=== PATIENT | female | born 1960 | race Caucasian/White ===

== ENCOUNTER 2019-11-27 08:00 | Inpatient (IN) ==
[2019-11-29] MEDS ORDERED: TRANEXAMIC ACID 1,000 MG in NORMAL SALINE 100 ML IV PRN (06:00)
[2019-11-29] MEDS ORDERED: MORPHINE SULFATE 15 MG TABLET.SA PO PRN (06:00)
[2019-11-29] MEDS ORDERED: ceFAZolin SODIUM 1 GM VIAL IV PRN (06:00)
[2019-11-29] MEDS ORDERED: ROPIVACAINE HCL/PF 100 MG, EPINEPHrine 0.2 MG, KETOROLAC TROMETHAMINE 30 MG in NORMAL S... IJ PRN (06:00)
[2019-11-29] MEDS ORDERED: ceFAZolin SODIUM 1 GM VIAL ONE (06:25)
[2019-11-29] MEDS ORDERED: ISOPROPYL ALCOHOL 480 APPL BTL MC ONE (06:25)
[2019-11-29] MEDS ORDERED: SCOPOLAMINE HYDROBROMIDE 1.5 MG PATC TD ONE (07:11)
--- NOTE | 2019-11-29 07:15 | ANES ---
Anesthesia Pre Procedure Eval Vitals/Labs: Last Vital Signs Temp 36.5 C 11/29/19 06:40 Pulse 66 11/29/19 06:40 Resp 18 11/29/19 06:40 BP 130/71 11/29/19 06:40 Pulse Ox 97 11/29/19 06:40 HOME MEDICATIONS Cholecalciferol (Vitamin D3) [Vitamin D3] 2,000 unit PO DAILY 11/14/15 [Last Taken Unknown] [place]-3 Fatty Acids/Fish Oil [Fish Oil 1,000 mg Capsule] 1 ea PO DAILY 11/14/15 [Last Taken Unknown] Omeprazole Magnesium [Prilosec Otc] 20 mg PO DAILY 11/14/15 [Last Taken Unknown] albuterol sulfate 90 mcg/actuation aerosol inhaler 1 - 2 puff IH Q6H PRN #18 g 12/29/18 [Last Taken Unknown] thyroid (pork) 120 mg tablet See Rx Instructions .ROUTE .COMPLEX #90 unknown measurement unit code: tablet 08/21/19 [Last Taken Unknown] meloxicam 15 mg tablet 15 mg PO DAILY #30 tab 09/07/19 [Last Taken Unknown] glimepiride 4 mg tablet 4 mg PO BID #60 tab 10/17/19 [Last Taken Unknown] montelukast 10 mg tablet 10 mg PO QPM #90 tab 10/17/19 [Last Taken Unknown] fluticasone propionate 110 mcg/actuation HFA aerosol inhaler See Rx Instructions .ROUTE .COMPLEX #12 unknown measurement unit code: gram 11/14/19 [Last Taken Unknown] lisinopril 10 mg tablet See Rx Instructions .ROUTE .COMPLEX #90 unknown measurement unit code: tablet 11/14/19 [Last Taken Unknown] triamterene 37.5 mg-hydrochlorothiazide 25 mg tablet See Rx Instructions .ROUTE .COMPLEX #90 unknown measurement unit code: tablet 11/14/19 [Last Taken Unknown] multivitamin 1 tab PO DAILY 11/15/19 [Last Taken Unknown] Allergies/Adverse Reactions: Allergies Allergy/AdvReac Type Severity Reaction Status Date / Time duloxetine HCl AdvReac Mild vomiting, Verified 11/29/19 07:13 [From Cymbalta] dizziness metformin AdvReac Mild Diarrhea Verified 11/29/19 07:13 prochlorperazine edisylate AdvReac Mild Nausea Verified 11/29/19 07:13 [From Compazine] prochlorperazine maleate AdvReac Mild Nausea Verified 11/29/19 07:13 [From Compazine] - Planned Procedure Planned Procedure: Left Total Hip Arthroplasty Medication List Reviewed:: Yes Allergies Verified: Yes Medical History (Last Reviewed 11/29/19 @ 07:14 by Devon Lindsay CRNA) Osteoarthritis (Chronic) Onset Date: 05/08/16 Involving multiple joints. 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 Eaton Hx of Achilles tendon repair 12/2010 Left revised Hx of appendectomy 1987 Hx of colonoscopy 2009 WNL Hx of total knee arthroplasty 12/10/15 Left - Dr. Eaton Family History (Last Reviewed 11/29/19 @ 07:14 by Devon Lindsay CRNA) Father , Age 70 AAA? No problems noted. Mother , Age 79 Diabetes Asthma Postpolio syndrome Sister Asthma Hernia Daughter Obesity x2 daughters - Family Anesthesia History Family History:: no untoward family reactions to anesthesia, no familial bleeding tendencies, no family history of clotting disorders, no family history of premature - Airway/Neck/Teeth Within Normal Limits:: Yes Mallampatti Score: 2 Thyromental (T-M) distance: > 6 cm Mandibulo Hyoid distance: > 3 cm - Respiratory Respiratory Physical: lungs clear Discussed smoking cessation including day of surgery: No Sleep Apnea currently treated: Yes - Cardiovascular Tolerate Activity: Fair Heart Sounds: S1 & S2, Regular - Gastrointestinal NPO since: mn - Anesthesia Assessment and Plan ASA Class: PS, III Anesthesia Type Plan: Spinal
[2019-11-29] MEDS: RINGER'S SOLUTION,LACTATED 1,000 ML IV PRN ×3 (07:23→09:21)
[2019-11-29] MEDS ORDERED: LIDOCAINE HCL 20 ML VIAL ONE (07:31)
[2019-11-29] MEDS ORDERED: ONDANSETRON HCL/PF 2 MG/ML VIAL ONE (07:32)
[2019-11-29] MEDS ORDERED: fentaNYL CITRATE/PF 50 MCG/ML AMPUL ONE (07:32)
[2019-11-29] MEDS ORDERED: PROPOFOL VIAL IV ONE (07:33)
[2019-11-29] MEDS ORDERED: ZOLPIDEM TARTRATE 5 MG TABLET PO PRN (09:44)
[2019-11-29] MEDS ORDERED: MORPHINE SULFATE 2 MG/ML DISP.SYRIN IV PRN (09:44)
[2019-11-29] MEDS ORDERED: ACETAMINOPHEN 500 MG TABLET PO PRN (09:44)
[2019-11-29] MEDS ORDERED: diphenhydrAMINE HCL 50 MG/ML VIAL IV PRN (09:44)
[2019-11-29] MEDS ORDERED: MAG HYDROX/ALUMINUM HYD/SIMETH 30 ML UDC PO PRN (09:44)
[2019-11-29] MEDS ORDERED: MAGNESIUM HYDROXIDE 30 ML UDC PO PRN (09:44)
[2019-11-29] MEDS ORDERED: RINGER'S SOLUTION,LACTATED 1,000 ML IV PRN (09:44)
[2019-11-29] MEDS ORDERED: ONDANSETRON HCL/PF 2 MG/ML VIAL IV PRN (09:44)
[2019-11-29] MEDS ORDERED: ALBUTEROL SULFATE 2.5 MG/0.5 ML VIAL.NEB IH PRN (09:46)
--- NOTE | 2019-11-29 09:51 | OR ---
Operative Report - Dictated Report Narrative: Date: 11/29/2019 Preoperative diagnosis: Left hip degenerative joint disease. Postoperative diagnosis: Left hip degenerative joint disease. Procedure: Left total hip arthroplasty. Surgeon: Brett Eaton M.D. Photoengraver: Fortunato Wilkes PA-C (provided an essential set of skilled, educated and assisted with transfer, positioning, prepping, draping, manipulation, traction, irrigation, suturing, and placement of dressings all of which cannot be performed by the available surgical crew) Anesthesia: Spinal and local periarticular joint injection. Complications: None Specimens: Bone. Estimated blood loss: 150 milliliters. Retained implants: Depuy Gray size 2 femoral stem standard offset. Size 52 millimeter outside diameter 3-hole Mcarthur Gription acetabular cup. 52 millimeter outside by 32 millimeter inside diameter highly cross-linked acetabular liner. 32 millimeter diameter +9 millimeter ceramic femoral head. Cancellous 6.5mm screw 30 millimeter length Indications: Mrs. John is a 58-year-old female who has had longstanding left hip pain and arthrosis. This patient was followed in my clinic for period of time with significant complaints of left hip pain consistent with arthritic changes. She failed conservative measures including but not limited to activity modification, passage of time, medications, and other conservative measures. Patient wished to proceed with surgical treatment. The risks, benefits, and alternatives were discussed in clinic. The risks of , blood clots, bleeding, infection, nerve/tendon blood vessel/ injury, malposition of components, dislocation and/or instability of joint, intraoperative fracture, p ostoperative limited range of motion, persistent pain, failure of components, and need for additional procedures. Patient wished to proceed. Consent was obtained after answering all questions. Procedure: After marking the correct extremity on the floor, the patient was taken to the operating room. A timeout was performed. IV antibiotics consisting of Ancef were administered prior to the procedure. A spinal anesthetic was induced by anesthesia. A Leon catheter was inserted. The patient was then transitioned to a lateral position on a well-padded pegboard. An axillary roll was placed. The head was in neutral position. The non- operative down leg was well-padded with SCD and CECIL hose in place. The arms were supported and padded to protect from any undue pressure on the bony promin ences and nerves. A well-padded anterior and posterior pelvic and chest posts were secured in order to maintain a stable position of the pelvis. This was placed so that the pelvis was perpendicular to the floor. The body was in line with the pelvis. Once it was felt that we had protected all the bony prominences and the patient was well secured with a safety belt as well, the leg was pre-scrubbed with alcohol, prepped and draped in a standard sterile fashion. A standard anterior lateral hip incision was marked out over the greater trochanter. Ioban drapes were then placed. The skin incision was then made. Sharp dissection with a scalpel utilizing cautery for hemostasis was carried out down to the gluteus and iliotibial band fascia. This was split in line with the skin incision. The greater trochanter bursa was excised. The anterior and posterior margins of the abductor tendon were identified. The anterior 1/2-1/3 of the tendon was tagged and reflected off the greater trochanter leaving a sleeve of tendon for repair at the completion of the case. This exposed the underlying hip joint capsule. A limb length stitch was placed in the skin and referencedd off a ria on the greater trochanter for evaluation of intraoperative limb lengths. An inverted T-type capsulotomy was made extending this up to the brim of the acetabulum. Using Homans to assist with elevation of the soft tissues off the anterior, superior, and inferior aspects of the femoral neck, the hip was then placed in a figure 4 position and the femoral head was dislocated. With the leg in an externally rotated and adducted position, the cutting flag was utilized in order to ria for a standard femoral neck cut approximately a fingerbreadth above the level of the lesser trochanter. This was done with reference to pre-operative films and overall alignment. This was done while protecting the surrounding soft tissues with Homans. The femoral head was then removed and sized for guidance on preparation of the acetabulum. It was noted that there was loss of articular cartilage on both the femoral head and weightbearing portions of the acetabulum. We then returned the leg to the table and turned our attention to the acetabulum. While protecting the surrounding soft tissues, the labrum and remaining tissue in the fovea were excised using a scalpel and cautery. A series of reamers up to size 52 millimeter were utilized to prepare the acetabulum. The final reamer had good purchase and exposed the bleeding subchondral bone. The acetabulum was then thoroughly irrigated ensuring that all bony and cartilaginous materials were removed, and the final acetabular shell was impacted into place. This was placed in approximately 45 degrees of abduction and 20 degrees of anteversion utilizing the outrigger and body axis for alignment. This had a good press fit. 1 6.5mm cancellous screw was placed in the superior posterior quadrant of the acetabulum. The shell was then thoroughly irrigated and the final polyethylene was impacted into place ensuring that it seated completely. This was then protected with a sponge while we returned our attention to the femur. With the leg in a figure 4 position, utilizing Homans for soft tissue protection, a box cutting osteotome, followed by Charnley awl, followed by serial reamers and broaches were utilized in order to prepare the femur. It was found that a size 2 broach gave good axial and rotational stability. The calcar reamer was utilized in order to clean up the cut edges. The proximal femur was visualized to ensure that there were no signs of fracture. A series of heads and necks were trialed. It was found that a standard offset neck and a + 9 femoral head gave good overall stability. There was minimal longitudinal inst ability. With the leg in the position of sleep, the femoral head was well covered. Hip range of motion was able to reach full extension and external rotation to greater than 75 degrees prior to impingement along the posterior acetabulum. The hip was able to be flexed to greater than 90 degrees with internal rotation greater than 60 degrees prior to anterior impingement. The limb lengths were near equal based on comparison to the contralateral side and the prior placed limb length stitch. At this point it was felt these were the appropriately sized femoral components as well as neck and femoral head. The trial implants were removed. The femur was thoroughly irrigated. The final implants were impacted into place, and the hip was reduced. After ensuring that there was no damage to the proximal femur, the standard periarticular joint injection of ropivacaine, Toradol, and epinephrine were injected into the joint capsule and surrounding soft tissues. Anesthesia then administered intravenous tranexamic acid. The capsule was repaired with a single interrupted #1 Vicryl. The abductor tendon was repaired to the greater trochanter utilizing #5 Ethibond through drill holes. This was oversewn with #1 Vicryl. The fascia was closed with interrupted #1 Vicryl and #1 strata fix barbed suture. The wounds were thoroughly irrigated as we closed in layers. The deep and subcutaneous fat layers were closed with 0 and 3-0 Vicryl respectively. The subcutaneous tissue was closed with a running 3-0 Vicryl and the skin chari. All sponge, needle, blade, and instrument counts were correct prior to closing the wounds. Sterile dressings consisting of xeroform, 4 x 4's, and tape were applied. The patient was awoken and transferred to her hospital bed and then to the postanesthesia care unit in stable condition. Postoperative condition: The plan is to admit to the medical/surgical inpatient floor postoperatively. There will be a projected 1 to 3 day hospital stay. Postoperatively 24 hours of IV antibiotics, pain control, physical therapy, occupational therapy, and medical comanagement will be utilized. Patient will be weightbearing as tolerated with anterior hip precautions. Postoperative films will be obtained in the recovery room.
--- NOTE | 2019-11-29 10:04 | ANES ---
Post Anesthesia Discharge - Transfer of Care Transfer of Care handoff given to nurse: Yes - Discharge from PACU Discharge from PACU when meets criteria: Yes - Discharge to ASU Discharge to ASU-no complications/pt stable: Yes
[2019-11-29] MEDS: ceFAZolin SODIUM 1 GM in DEXTROSE 5 % IN WATER 100 ML IV SCH ×6 (10:48→22:35)
[2019-11-29] MEDS: KETOROLAC TROMETHAMINE 15 MG/ML VIAL IV SCH ×3 (10:49→22:32)
--- NOTE | 2019-11-29 10:54 | ANES ---
Post Anesthesia Assessment - Vital Signs Vitals: Last Vital Signs Temp 36 C 11/29/19 10:25 Pulse 67 11/29/19 10:25 Resp 14 11/29/19 10:25 BP 95/43 11/29/19 10:25 Pulse Ox 100 11/29/19 10:25 Airway Patency: Normal - Mental Status Level Of Consciousness: Awake - Pain Level Pain Score: 0 - N/V Assessment Nausea/Vomiting Presence: None Dehydration:: No
[2019-11-29] MEDS: oxyCODONE HCL/ACETAMINOPHEN 1 TAB TABLET PO PRN (13:10)
[2019-11-29] MEDS ORDERED: MONTELUKAST SODIUM 10 MG TABLET PO SCH (17:00)
[2019-11-29] MEDS: BUDESONIDE 0.5 MG/2 ML VIAL.NEB IH SCH (18:11)
[2019-11-29] MEDS ORDERED: SENNOSIDES/DOCUSATE SODIUM 1 TAB TABLET PO SCH (21:00)
[2019-11-29] MEDS: GLIMEPIRIDE 4 MG TABLET PO SCH (21:02)
[2019-11-29] MEDS: MORPHINE SULFATE 15 MG TABLET.SA PO SCH (21:03)
[2019-11-30] MEDS: ceFAZolin SODIUM 1 GM in DEXTROSE 5 % IN WATER 100 ML IV SCH ×2 (01:48)
[2019-11-30] MEDS: KETOROLAC TROMETHAMINE 15 MG/ML VIAL IV SCH ×2 (03:37→09:37)
[2019-11-30 06:21] LABS: Anion Gap 10.7 mmol/L (6.8-13.8); BUN/Creatinine Ratio 18.8 (9.0-21.6); Calcium * 8.8 mg/dL (7.9-10.9); Carbon Dioxide 29.5 mmol/L (24-32.6); Potassium 4.2 mmol/L (3.4-4.6)
[2019-11-30 06:41] LABS: Hemoglobin 9.8 gm/dL (12.5-16.0); Mean Cell Volume 93.4 fl (78-100); Mean Corpuscular Hemoglobin 29.5 pg (27-31); Mean Corpuscular Hgb Conc 31.6 g/dl (32-36); Mean Platelet Volume 9.8 fl (8-12.5); Platelet Count 199 K/mm3 (150-450); Red Blood Count 3.32 M/mm3 (4.2-5.4); Red Cell Distribution Width 12.8 % (11.5-14.0); White Blood Count 6.8 K/mm3 (4.0-10.5)
[2019-11-30] MEDS ORDERED: PANTOPRAZOLE SODIUM 20 MG TABLET.DR PO SCH (07:00)
[2019-11-30] MEDS: BUDESONIDE 0.5 MG/2 ML VIAL.NEB IH SCH (07:59)
[2019-11-30] MEDS: MORPHINE SULFATE 15 MG TABLET.SA PO SCH (08:13)
[2019-11-30] MEDS: GLIMEPIRIDE 4 MG TABLET PO SCH (08:16)
[2019-11-30] MEDS ORDERED: ENOXAPARIN SODIUM 40 MG/0.4 ML SYRG SC SCH (08:44)
[2019-11-30] MEDS ORDERED: OMEGA-3 FATTY ACIDS 1 CAP CAPSULE PO SCH (09:00)
[2019-11-30] MEDS ORDERED: LISINOPRIL 10 MG TABLET PO SCH (09:00)
[2019-11-30] MEDS ORDERED: CHOLECALCIFEROL 1,000 UNIT CAPSULE PO SCH (09:00)
--- NOTE | 2019-11-30 11:07 | DS ---
(1) Status post total hip replacement, left Problem: Acute Date of Discharge:: 11/30/19 Hospital Course: 58-year-old female postop day 1 status post left total hip arthroplasty. Patient was admitted postoperatively for continued monitoring, pain control, PT/OT goals, return to p.o. diet, monitoring for postoperative complications. Patient overall has had an uncomplicated stay in the hospital. She is doing well she is ambulated well without significant complication. She has passed all of her physical therapy goals. Patient will be discharged home today. Patient was given 24 hours of antibiotics postoperatively. Hospital stay included DVT prophylaxis of Lovenox, SCDs in bed, CECIL hose knee-high. Patient's vitals have continued to be stable without significant complication, no significant abnormalities that require treatment at this time. Exam reveals left lower extremity--> sensation tact light touch, distal capillary refill brisk, 4+/5 knee flexion and extension, bandages clean/dry/intact. Patient notes her pain is well controlled at this time. She has returned to a p.o. diet without any significant nausea or vomiting. Patient will require the use of a walker postoperatively. This is directly related to patient's total hip replacement on the left side. Patient is expressed willingness to use this, I believe this will aid patient in performing activities of daily living. Patient's home is fitted to be used for a walker without significant complications. Patient otherwise wishes to continue using this walker as her assistive device. She denies any other acute concerns. She will continue with the following recommendations: -Weightbearing as tolerated, assistive device as needed, anterior precautions -PT/OT progress as tolerated per protocol -P.o. diet as tolerated -Pain medication PRN -DVT prophylaxis: Lovenox for 10 days followed by 325 mg aspirin daily for 6 weeks, CECIL hose knee-high bilateral -Follow-up with orthopedic outpatient clinic at 2 weeks postop -Disposition: Discharge home with outpatient physical therapy Procedures Performed: see notes below List Procedures: Status post left total hip arthroplasty Results and Findings: Lab Pending Results 11/30/19 06:13: WBC 6.8, RBC 3.32 L, Hgb 9.8 L, Hct 31.0 L, MCV 93.4, MCH 29.5, MCHC 31.6 L, RDW 12.8, Plt Count 199, MPV 9.8 11/30/19 06:13: Sodium 138, Plasma Sodium 139, Potassium 4.2, Chloride 102, Carbon Dioxide 29.5, Anion Gap 10.7, BUN 22, Creatinine 1.17, Est GFR (Non-Af Amer) 50 L, BUN/Creatinine Ratio 18.8, Random Glucose 175 H, Calcium 8.8 Discharge Location: Home Disposition: Home self-care Condition: Stable Discharge Activity: Activity as tolerated - Weightbearing as tolerated, anterior precautions, assistive device., Weight bearing Discharge Diet: General/regular food Referrals: Yaritza Álvarez MD [Primary Care Provider] - Problem Oriented Discharge Instructions to Patient/Family: Total Hip Replacement, [id number] [employer] Language ([place] or Grenadian Available): [place] Additional Patient Instructions (free text): [facility] outpatient Physical Therapy Tuesday12/03/2019 at10:30am. Follow up Orthopedic office appointment on Tuesday12/10/19 at 10:30am. Prescriptions (Any new or edited meds): Enoxaparin Sodium [Lovenox] 40 mg SC Q24H #9 disp.syrin Transmission Status: Pending to [facility] oxyCODONE HCL/ACETAMINOPHEN [Percocet 5 MG/325 MG] 1 - 2 tab PO Q4H PRN #60 tab PRN Reason: Moderate Pain (Pain Scale 4-6) Transmission Status: Received by [facility] Complete Home Medications List: Complete Home Medication List: Cholecalciferol (Vitamin D3) [Vitamin D3] 2,000 unit PO DAILY 11/14/15 [place]-3 Fatty Acids/Fish Oil [Fish Oil 1,000 mg Capsule] 1 ea PO DAILY 11/14/15 Omeprazole Magnesium [Prilosec Otc] 20 mg PO DAILY 11/14/15 albuterol sulfate 90 mcg/actuation aerosol inhaler 1 - 2 puff IH Q6H PRN #18 g 12/29/18 thyroid (pork) 120 mg tablet See Rx Instructions .ROUTE .COMPLEX #90 unknown measurement unit code: tablet 08/21/19 meloxicam 15 mg tablet 15 mg PO DAILY #30 tab 09/07/19 glimepiride 4 mg tablet 4 mg PO BID #60 tab 10/17/19 montelukast 10 mg tablet 10 mg PO QPM #90 tab 10/17/19 fluticasone propionate 110 mcg/actuation HFA aerosol inhaler See Rx Instructions .ROUTE .COMPLEX #12 unknown measurement unit code: gram 11/14/19 lisinopril 10 mg tablet See Rx Instructions .ROUTE .COMPLEX #90 unknown measurement unit code: tablet 11/14/19 triamterene 37.5 mg-hydrochlorothiazide 25 mg tablet See Rx Instructions .ROUTE .COMPLEX #90 unknown measurement unit code: tablet 11/14/19 multivitamin 1 tab PO DAILY 11/15/19 Enoxaparin Sodium [Lovenox] 40 mg SC Q24H #9 disp.syrin 11/30/19 oxyCODONE HCL/ACETAMINOPHEN [Percocet 5 MG/325 MG] 1 - 2 tab PO Q4H PRN #60 tab 11/30/19 Amb Orders for Discharge: PT Evaluation and Treatment* Location: None Selected
[2019-11-30] MEDS: oxyCODONE HCL/ACETAMINOPHEN 1 TAB TABLET PO PRN (12:18)
[2019-11-30 13:21] VITALS: BP 110/55
== END 2019-11-30 13:25 | disposition home or self-care (01) | DRG 470 ==
LOC: MS 11-29 06:29 → EDSTATUS 11-29 08:00
PROVIDERS: ADMIT Orthopaedic Surgery; ATTEND Orthopaedic Surgery